=== PATIENT | female | born 1990 | race Caucasian/White ===

== ENCOUNTER 2019-05-28 22:49 | Emergency (ER) | payer OTHER ==
[~2019-05-28] VITALS: Ht 167.6 cm; Wt 73.0 kg
[~2019-05-28 22:49] MED LIST: [UNRECOGNIZED DRUG - CODE] PO
[2019-05-28 23:03] VITALS: BP 149/78
--- NOTE | 2019-05-28 23:05 | NUR ---
PT PROVIDING URINE. AMBULATED TO BED 2. VSS.
--- NOTE | 2019-05-28 23:15 | NUR ---
29 Y/O FEMALE PRESENTS TO ED, C/O HEMATURIA. PT STATES SHE NOTICED BLOOD IN URINE THIS MORNING. C/O ABDOMINAL 04/12 THAT RADIATES TO LOWER FLANK. PT DENIES ANY N/V. HCG TEST AT ED IS NEGATIVE. PT DENIES TAKING ANY MEDICATIONS FOR PAIN. PT VSS. ERMD AWARE. WILL CONTINUE TO MONITOR.
--- NOTE | 2019-05-29 01:27 | NUR ---
Dr. Copeland examining patient.
[2019-05-29 01:36] VITALS: BP 137/78
--- NOTE | 2019-05-29 01:36 | NUR ---
PT DISCHARGED WITH PAPERWORK. RX PROVERA. EDUCATED PT REGARDING MEDICATION AND S/E. EDUCATED PT REGARDING D/C INSTRUCTIONS AND DIAGNOSIS. PT VERBALIZED UNDERSTANDING OF TEACHING. TOLD PT TO FOLLOW UP WITH PCP AND WHEN TO RETURN TO ED. PT VSS. ALL QUESTIONS ANSWERED.
== END 2019-05-29 01:36 | disposition home or self-care (01) ==
LOC: MED 22:49
DX: N93.9 Abnormal uterine and vaginal bleeding, unspecified (principal)
CPT/HCPCS: 81002; 81025; 99283